=== PATIENT | female | born 1970 | race Caucasian/White ===

== ENCOUNTER → 2021-06-01 | Day surgery (SDC) | payer OTHER ==
[~2021-06-01] MED LIST: ADULT LOW DOSE81 MG PO; ALLEGRA ALLERG180 MG PO; ATARAX PO; AZELASTINE137 MCG/0.; BENTYL 20MG TAB20 MG PO; BREO ELLIPTA 21 EACH INH; BUSPAR 10MG10 MG PO; CALAN SR120 MG PO; CARDURA4 MG PO; COMBIVENT INHALE4 GM INH; COMBIVENT RESPIM4 GM INH; DEXILANT60 MG PO; FLONASE 0.05% N16 GM; HYDROCHLOROTHIA50 MG PO; IBU800 MG PO; IPRAT-ALBUT 0.5-3 ML INH; LINZESS290 MCG PO; NORCO 5-325 TA1 EACH PO; PHENERGAN6.25 MG/5 PO; PROTONIX40 MG PO; REMERON30 MG PO; ROBAXIN 750 MG750 MG PO; ROBAXIN-750750 MG PO; SINGULAIR10 MG PO; THERAGRAN M TAB1 EA PO; TIGAN300 MG PO; TUMS200 MG PO; VISTARIL50 MG PO; VITAMIN C1000 M2 PO; VITAMIN D350 MC3 PO; VITAMIN E400 UNI2 PO; ZINC50 M1 PO; ZOLOFT100 MG PO; [UNRECOGNIZED DRUG - OTHER] INH; [UNRECOGNIZED DRUG - OTHER] IV
== END | disposition home or self-care (01) ==
LOC: OR 05:13
DX: T82.594A Other mechanical complication of infusion catheter, initial encounter (principal); K31.84 Gastroparesis; F41.9 Anxiety disorder, unspecified; M19.90 Unspecified osteoarthritis, unspecified site; J45.909 Unspecified asthma, uncomplicated; F32.9 Major depressive disorder, single episode, unspecified; I10 Essential (primary) hypertension; K21.9 Gastro-esophageal reflux disease without esophagitis; M35.00 Sjogren syndrome, unspecified; G47.30 Sleep apnea, unspecified; E66.01 Morbid (severe) obesity due to excess calories; Z68.43 Body mass index [BMI] 50.0-59.9, adult; Z88.8 Allergy status to other drugs, medicaments and biological substances; Z79.82 Long term (current) use of aspirin; Z79.899 Other long term (current) drug therapy
CPT/HCPCS: 71045; C1769; C1788; J0690; J1100; J1642; J2001; J2250; J2370; J2405; J2704; J2765; J3010; J7030; J7040; J7120

== ENCOUNTER 2022-02-25 22:10 | Emergency (ER) | payer OTHER ==
[2022-02-25 23:33] LABS: HEMOGLOBIN 13.1 gm/dl (12.3-15.3); RED BLOOD COUNT 4.45 M/UL (4.00-5.10); WHITE BLOOD COUNT 6.1 K/UL (4.5-11.0)
[2022-02-26 00:03] LABS: BUN/CREATININE RATIO 11 (0-10)
== END 2022-02-26 02:18 | disposition home or self-care (01) ==
LOC: ER1 22:10
PROVIDERS: Family Medicine
DX: K31.84 Gastroparesis (principal); I10 Essential (primary) hypertension; F15.90 Other stimulant use, unspecified, uncomplicated; Z88.8 Allergy status to other drugs, medicaments and biological substances
CPT/HCPCS: 80053; 81001; 82330; 82550; 82553; 84484; 85025; 93005; 99284